=== PATIENT | male | born 1995 | race African-American/Black ===

== ENCOUNTER 2018-03-03 09:48 | Outpatient (CLI) | payer OTHER ==
--- NOTE | 2018-03-03 12:02 | MRI ---
MRI LEFT SHOULDER WITHOUT CONTRAST: HISTORY: Pain. Trauma. COMPARISON: Shoulder radiographs from 02/28/2018. FINDINGS: Prior biceps tenodesis. No abnormal intraarticular biceps tendon. LABRUM: There is a tear of the posterior-superior labrum, extending through the labral substance. T he tear does extend into the glenoid cartilage. This is craniad to posterior glenoid anchors. There is some periosteal edema adjacent to the labral tear. ROTATOR CUFF: Intact. BONES: Intact. MUSCLES: Normal muscle signal and bulk. IMPRESSION: 1. Posterior-superior labral tear extending to the articular cartilage of the posterior-superior gle noid. There is also adjacent periosteal edema and stripping. 2. Prior biceps tenodesis. 3. Intact rotator cuff. POS: [facility]
== END 2018-03-03 09:49 | disposition home or self-care (01) ==
LOC: MRI 09:48
PROVIDERS: ATTEND Orthopaedic Surgery
DX: M12.812 Other specific arthropathies, not elsewhere classified, left shoulder (principal); S43.402A Unspecified sprain of left shoulder joint, initial encounter